=== PATIENT | male | born 1945 | race Caucasian/White ===

== ENCOUNTER 2017-02-14 08:38 | Inpatient (IN) | payer OTHER ==
[~2017-02-14] VITALS: Ht 177.8 cm; Wt 70.3 kg
[~2017-02-14 08:38] MED LIST: ARTIFICIAL TEAR15 M1 OP; ARTIFICIAL TEAR15 M2 OP; ASA400 PO; ASPIR 8181 MG PO; ASPIRIN EC81 M1 PO; ATIVAN0.5 M1 PO; AVODART0.5 M1 PO; AZATHIOPRINE50 MG PO; AZULFIDINE500 MG PO; BACO TOP; BUS10 PO; BUSPIRONE HCL10 MG PO; BUSPIRONE HCL5 MG PO; CARVEDILOL3.125 M1 PO; CARVEDILOL6.25 M1 PO; CHOLESTYRAM4 GM/5 GM PO; CIPRO250 MG PO; CIPROFLOXACIN250 M2 PO; COLACE100 MG PO; DIF100 PO; DIOVAN40 MG PO; ECO81 PO; FER300 PO; FERROUS SULFAT325 M2 PO; FLA250 PO; FLO4 PO; FOLIC ACID1 MG PO; GLUCOSE PO; GLUCOSE4 G1 PO; GOOD SENSE ASPI81 M3 PO; HIBICLENS118 ML TOP; HYDROCODONE BIT1 T12 PO; IBUPROFEN400 MG PO; IMDUR30 MG PO; ISOSORBIDE DINI20 MG PO; KEFLEX500 MG PO; LAC PO; LEVAQUIN750 MG PO; LEVOTHYROXIN0.125 M2 PO; LIALDA1.2 GM PO; LIPI20 PO; LORAZEPAM0.5 MG PO; LOVAZA1 G1 PO; METFORMIN ER500 M1 PO; METFORMIN HCL500 MG PO; NATEGLINIDE120 M1 PO; NITROQUICK0.3 MG SL; NITROSTAT0.4 MG SL; NORCO1 TA2 PO; NOVI SQ; NOVOLOG FLEX100 U/M1 SC; OMEGA 31000 MG PO; OMEPRAZOLE DR20 M1 PO; OXYBUTYNIN CHLO10 MG PO; OXYCODONE HYDROC5 M2 PO; PERCOCET1 TA2 PO; PRE20 PO; PREPARATION H RC; PRILOSEC20 MG PO; PROAIR HFA0.09 MG/A1 INH; PYR200 PO; Q-VAR INH; QVAR0.08 MG/Ac IH; RANEXA500 M1 PO; SEROQUEL25 MG PO; SERTRALINE25 M1 PO; SIMVASTATIN40 M1 PO; SPIRIVA18 MC1 INH; TAMSULOSIN HCL0.4 MG PO; TANSULOSIN PO; TYLENOL EXTRA500 M2 PO; UCERIS9 MG PO; VITAMIN C W/RO250 MG PO; VITAMIN C100 M1 PO; VITAMIN C250 M1 PO; VITAMIN D22000 I1 PO; XOPENEX1.25 MG/3 NEB; ZETIA10 M1 PO; ZOLOFT25 MG PO; [UNRECOGNIZED DRUG - OTHER]
[2017-02-14 10:25] LABS: CARBON DIOXIDE 23.4 mmol/L (21-32); CHLORIDE SERUM 102 mmol/L (98-107); CREATININE SERUM 1.1 mg/dL (0.7-1.3); GLUCOSE SERUM 139 mg/dL (74-106); POTASSIUM SERUM 3.9 mmol/L (3.5-5.1); SODIUM SERUM 136 mmol/L (136-145)
[2017-02-14 10:30] LABS: ALBUMIN 3.4 g/dL (3.4-5.0); ALKALINE PHOSPHATASE 100 U/L (46-116); ALT/SGPT 14 U/L (16-63); AST/SGOT 15 U/L (15-37); BILIRUBIN TOTAL 0.59 mg/dL (0.20-1.00); TOTAL PROTEIN, SERUM 7.7 g/dL (6.4-8.2)
[2017-02-14 10:41] LABS: PLATELET COUNT 324 x10^3mcL (130-400)
[2017-02-14 10:42] LABS: BASOPHIL % 2.7 % (0-2); RED CELL DISTRIBUTION WIDTH 16.5 % (11.5-14.5)
[2017-02-14 11:34] LABS: AMYLASE 91 U/L (25-115); CHOLESTEROL 162 mg/dL (<200); CHOLESTEROL/HDL RATIO 4.4; HDL CHOLESTEROL 37 mg/dL (40-60); LIPASE 127 IU/L (73-393)
[2017-02-14 11:35] LABS: TRIGLYCERIDES 408 mg/dL (<150)
[2017-02-14 11:44] LABS: FREE T4 0.89 ng/dL (0.76-1.46); FREE THYROXINE INDEX 2.2 ug/dL (1.4-4.5); T4(THYROXINE) 7.5 ug/dL (4.7-13.3)
[2017-02-14 11:53] LABS: T3 TOTAL 1.14 ng/mL
[2017-02-14 13:20] VITALS: BP 138/86
[2017-02-14 15:22] VITALS: Ht 177.8 cm; Wt 70.3 kg
[2017-02-14 16:31] LABS: UA SPECIFIC GRAVITY <=1.005 (1.005-1.035); urine erythrocyte NEGATIVE (NEGATIVE)
[2017-02-14 16:40] LABS: microscopic required? YES
[2017-02-14 16:42] LABS: AMPHETAMINE QUAL UR NONE DETECTED (NEG <=1000)
[2017-02-14 22:26] VITALS: BP 132/74
[2017-02-15 06:39] VITALS: BP 122/66
[2017-02-15 09:22] VITALS: BP 155/68
[2017-02-15 13:48] VITALS: BP 130/68
[2017-02-15 17:06] VITALS: BP 132/69
[2017-02-15 21:46] VITALS: BP 157/79
[2017-02-16 05:57] VITALS: BP 119/61
[2017-02-16 06:25] LABS: CALCIUM 8.4 mg/dL (8.5-10.1); CHLORIDE SERUM 106 mmol/L (98-107); CREATININE SERUM 1.1 mg/dL (0.7-1.3); GLUCOSE SERUM 127 mg/dL (74-106); MAGNESIUM 1.6 mg/dL (1.8-2.4); PHOSPHOROUS 4.8 mg/dL (2.5-4.9); POTASSIUM SERUM 4.1 mmol/L (3.5-5.1); SODIUM SERUM 140 mmol/L (136-145)
[2017-02-16 06:30] LABS: BASOPHIL % 0.5 % (0-2); PLATELET COUNT 272 x10^3mcL (130-400)
[2017-02-16 07:16] LABS: RED CELL DISTRIBUTION WIDTH 17.3 % (11.5-14.5)
[2017-02-16 09:28] VITALS: BP 133/73
[2017-02-16] MEDS ORDERED: MAG PO (11:15)
[2017-02-16] MEDS ORDERED: ASPIRIN325 MG (12:42)
[2017-02-16] MEDS ORDERED: PROAIR HFA8.5 GM IH (12:49)
[2017-02-16] MEDS ORDERED: RANEXA500 M2 (13:12)
[2017-02-16] MEDS ORDERED: FRUITY C250 MG (13:15)
[2017-02-16 13:34] VITALS: BP 133/73
[2017-02-16 13:35] VITALS: BP 142/76
== END 2017-02-16 16:20 | disposition home or self-care (01) | DRG 392 ==
LOC: ED 08:38 → DU 10:48
PROVIDERS: Emergency Medicine; ADMIT Family Medicine
DX: K21.9 Gastro-esophageal reflux disease without esophagitis (principal); K51.90 Ulcerative colitis, unspecified, without complications; D68.69 Other thrombophilia; E11.65 Type 2 diabetes mellitus with hyperglycemia; J44.9 Chronic obstructive pulmonary disease, unspecified; E86.0 Dehydration; E02 Subclinical iodine-deficiency hypothyroidism; I35.8 Other nonrheumatic aortic valve disorders; I10 Essential (primary) hypertension; D64.9 Anemia, unspecified; M54.9 Dorsalgia, unspecified; E78.5 Hyperlipidemia, unspecified; F41.8 Other specified anxiety disorders; I25.2 Old myocardial infarction; Z79.82 Long term (current) use of aspirin; Z79.4 Long term (current) use of insulin; Z68.24 Body mass index [BMI] 24.0-24.9, adult; Z95.1 Presence of aortocoronary bypass graft; Z87.891 Personal history of nicotine dependence; I25.10 Atherosclerotic heart disease of native coronary artery without angina pectoris
CPT/HCPCS: 80307; 83880; 84439; J2270; J2405; J3475; J3535; J7030; J7500; J7613; Q0092

== ENCOUNTER 2017-05-16 08:50 | Inpatient (IN) | payer OTHER ==
[~2017-05-16] VITALS: Ht 177.8 cm; Wt 71.3 kg
[~2017-05-16 08:50] MED LIST changes: +ASPIRIN325 MG; +FRUITY C250 MG; +MAG PO; +PROAIR HFA8.5 GM IH; +RANEXA500 M2
[2017-05-16 09:19] LABS: BASOPHIL % 0.4 % (0-2); PLATELET COUNT 316 x10^3mcL (130-400)
[2017-05-16 09:23] LABS: RED CELL DISTRIBUTION WIDTH 14.9 % (11.5-14.5)
[2017-05-16 09:25] LABS: CALCIUM 9.1 mg/dL (8.5-10.1); CARBON DIOXIDE 25.2 mmol/L (21-32); CHLORIDE SERUM 104 mmol/L (98-107); CREATININE SERUM 1.1 mg/dL (0.7-1.3); GLUCOSE SERUM 255 mg/dL (74-106); POTASSIUM SERUM 3.9 mmol/L (3.5-5.1); SODIUM SERUM 139 mmol/L (136-145)
[2017-05-16 09:29] LABS: ALKALINE PHOSPHATASE 81 U/L (46-116); ALT/SGPT 13 U/L (16-63); AST/SGOT 10 U/L (15-37); MAGNESIUM 1.6 mg/dL (1.8-2.4); TOTAL PROTEIN, SERUM 7.7 g/dL (6.4-8.2)
[2017-05-16 09:31] LABS: ALBUMIN 3.3 g/dL (3.4-5.0)
[2017-05-16] MEDS ORDERED: [UNRECOGNIZED DRUG - OTHER] PO (09:36)
[2017-05-16] MEDS ORDERED: DICLOFENAC PO (09:38)
[2017-05-16] MEDS ORDERED: BENTYL10 MG PO (09:39)
[2017-05-16] MEDS ORDERED: LOMOTIL1 TAB PO (09:40)
[2017-05-16] MEDS ORDERED: FLUTICASONE (09:41)
[2017-05-16] MEDS ORDERED: GLUCOSE PO (09:42)
[2017-05-16] MEDS ORDERED: HYDROCORTISONE PO (09:42)
[2017-05-16] MEDS ORDERED: HYDROCODONE PO (09:43)
[2017-05-16] MEDS ORDERED: LEVALBUTEROL PO (09:45)
[2017-05-16] MEDS ORDERED: LIALDA1.2 GM PO (09:45)
[2017-05-16] MEDS ORDERED: MUPIROCIN PO (09:47)
[2017-05-16] MEDS ORDERED: [UNRECOGNIZED DRUG - OTHER] PO (09:49)
[2017-05-16] MEDS ORDERED: PROAIR RES117 MCG/Ac (09:50)
[2017-05-16] MEDS ORDERED: RENEXA PO (09:51)
[2017-05-16] MEDS ORDERED: PROBIOTIC PO (09:51)
[2017-05-16] MEDS ORDERED: SIMVASTATIN10 M1 PO (09:52)
[2017-05-16] MEDS ORDERED: RESTASIS0.051 OU (09:52)
[2017-05-16] MEDS ORDERED: SYSTANE1 EACH TP (09:53)
[2017-05-16] MEDS ORDERED: SPIRIVA18 MC1 INH (09:53)
[2017-05-16] MEDS ORDERED: TANSULOSIN PO (09:54)
[2017-05-16] MEDS ORDERED: ZANAFLEX CAPSULE4 MG PO (09:55)
[2017-05-16] MEDS ORDERED: VIT D2 PO (09:56)
[2017-05-16 11:35] VITALS: BP 121/68
[2017-05-16 17:57] VITALS: BP 96/57
[2017-05-16 22:46] VITALS: BP 88/53
[2017-05-17] VITALS (9 sets, daily range): BP systolic 83–181; BP diastolic 47–82
[2017-05-17 05:52] LABS: BASOPHIL % 0.6 % (0-2); PLATELET COUNT 290 x10^3mcL (130-400)
[2017-05-17 06:20] LABS: CALCIUM 8.4 mg/dL (8.5-10.1); CHLORIDE SERUM 107 mmol/L (98-107); CREATININE SERUM 1.1 mg/dL (0.7-1.3); GLUCOSE SERUM 188 mg/dL (74-106); HDL CHOLESTEROL 35 mg/dL (40-60); SODIUM SERUM 140 mmol/L (136-145); TRIGLYCERIDES 136 mg/dL (<150)
[2017-05-17 06:24] LABS: CHOLESTEROL 103 mg/dL (<200); CHOLESTEROL/HDL RATIO 2.9
[2017-05-17 06:37] LABS: RED CELL DISTRIBUTION WIDTH 14.7 % (11.5-14.5)
[2017-05-18 05:56] VITALS: Ht 177.8 cm; Wt 71.3 kg
[2017-05-18 06:12] VITALS: BP 92/51
[2017-05-18 09:42] VITALS: BP 99/56
[2017-05-18 12:22] LABS: BASOPHIL % 0.3 % (0-2); PLATELET COUNT 335 x10^3mcL (130-400); RED CELL DISTRIBUTION WIDTH 14.4 % (11.5-14.5)
[2017-05-18 12:34] LABS: CALCIUM 8.8 mg/dL (8.5-10.1); CARBON DIOXIDE 26.4 mmol/L (21-32); CHLORIDE SERUM 102 mmol/L (98-107); CREATININE SERUM 1.1 mg/dL (0.7-1.3); GLUCOSE SERUM 124 mg/dL (74-106); MAGNESIUM 1.7 mg/dL (1.8-2.4); PHOSPHOROUS 3.6 mg/dL (2.5-4.9); POTASSIUM SERUM 3.6 mmol/L (3.5-5.1); SODIUM SERUM 135 mmol/L (136-145)
[2017-05-18 13:28] VITALS: BP 106/61
[2017-05-18 13:48] VITALS: BP 106/61
== END 2017-05-18 14:42 | disposition home or self-care (01) | DRG 392 ==
LOC: ED 08:50 → DU 10:49
PROVIDERS: Emergency Medicine; ADMIT Family Medicine
DX: K21.9 Gastro-esophageal reflux disease without esophagitis (principal); D68.69 Other thrombophilia; K51.90 Ulcerative colitis, unspecified, without complications; I25.10 Atherosclerotic heart disease of native coronary artery without angina pectoris; E11.65 Type 2 diabetes mellitus with hyperglycemia; I10 Essential (primary) hypertension; E03.9 Hypothyroidism, unspecified; D63.8 Anemia in other chronic diseases classified elsewhere; J44.9 Chronic obstructive pulmonary disease, unspecified; F41.8 Other specified anxiety disorders; E78.5 Hyperlipidemia, unspecified; Z66 Do not resuscitate; I25.2 Old myocardial infarction; Z79.4 Long term (current) use of insulin; Z79.82 Long term (current) use of aspirin; Z68.22 Body mass index [BMI] 22.0-22.9, adult; Z95.1 Presence of aortocoronary bypass graft; Z87.891 Personal history of nicotine dependence; Z95.5 Presence of coronary angioplasty implant and graft
CPT/HCPCS: 83880; J1815; J2270; J3475; J7040; J7500; J7613; Q0092; Q0162

== ENCOUNTER 2017-09-06 11:12 | Emergency (ER) | payer OTHER ==
[~2017-09-06 11:12] MED LIST changes: +BENTYL10 MG PO; +DICLOFENAC PO; +FLUTICASONE; +HYDROCODONE PO; +HYDROCORTISONE PO; +LEVALBUTEROL PO; +LOMOTIL1 TAB PO; +MUPIROCIN PO; +PROAIR RES117 MCG/Ac; +PROBIOTIC PO; +RENEXA PO; +RESTASIS0.051 OU; +SIMVASTATIN10 M1 PO; +SYSTANE1 EACH TP; +VIT D2 PO; +ZANAFLEX CAPSULE4 MG PO; +[UNRECOGNIZED DRUG - OTHER] PO; +[UNRECOGNIZED DRUG - OTHER] PO
[2017-09-06 11:17] VITALS: BP 127/68
== END 2017-09-06 13:10 | disposition home or self-care (01) ==
LOC: ED 11:12
DX: R51 Headache (principal); I10 Essential (primary) hypertension; E11.9 Type 2 diabetes mellitus without complications; R42 Dizziness and giddiness; R11.0 Nausea; R53.1 Weakness; E78.5 Hyperlipidemia, unspecified; K21.9 Gastro-esophageal reflux disease without esophagitis; Z87.19 Personal history of other diseases of the digestive system; Z79.51 Long term (current) use of inhaled steroids; Z79.899 Other long term (current) drug therapy